=== PATIENT | female | born 1955 | race Caucasian/White ===

== ENCOUNTER 2019-07-14 08:18 | Day surgery (SDC) | payer MEDICARE, MEDICAID ==
--- NOTE | 2019-07-14 07:49 | HP ---
CC: Fredi Corbett MD * DATE OF PLANNED ADMISSION AND SURGERY: 07/14/2019 HISTORY OF PRESENT ILLNESS: Ms. Tovar is a 64-year-old white female who is admitted with microscopic hematuria, suspicious bladder lesion for cystoscopy and excisional biopsies. The patient had been followed by Dr. Corbett, her primary care physician in the [facility], for persistent microscopic hematuria. The patient has been having some frequency and nocturia about every 2 to 3 hours with urinary incontinence at night. There is no history of gross hematuria, renal or flank pain, or other voiding symptoms. The patient had a noncontrast CT of the abdomen and pelvis which showed no abnormalities in the kidneys or in the ureters. No renal calculi, renal masses or hydronephrosis were noted. There were small bilateral adrenal nodules; however, they were felt to be benign by the radiologist. The patient had two cystoscopies in my office as a work-up for the microhematuria. On both of them, there was a 1 cm flat lesion in the right anterior bladder wall that was suspicious for either flat transitional cell carcinoma or carcinoma in situ. Patient was scheduled twice before today to undergo cystoscopy and biopsies in the operating room; however, in both instances, the patient failed to show up for her procedures and her surgery was rescheduled. Now, she is going to admitted today for that procedure. PAST MEDICAL HISTORY AND SYSTEM REVIEW: She is diabetic, maintained on metformin 1000 mg daily and on Levemir injections. She has history of COPD and sleep apnea. She is on inhalers. She had a stroke many years ago and has been maintained on one regular aspirin per day and Plavix 75 mg daily. She has osteoporosis, on alendronate 70 mg once weekly. She has a history of migraines, on Tegretol 200 mg p.o. daily. She has environmental allergies, on Zyrtec. Patient is legally blind. ALLERGIES: Patient is allergic or intolerant to LAMICTAL, LISINOPRIL and LOSARTAN. MENTAL HEALTH HISTORY: She has bipolar disorder, anxiety and depression, and she is on amitriptyline and Xanax. FAMILY HISTORY: Positive for diabetes mellitus. SOCIAL HISTORY: The patient was a smoker of half a pack per day for about 10 years, stopped about 25 years ago, still smokes 2 cigarettes per day. She denies alcohol intake and recreational drug use. PHYSICAL EXAMINATION GENERAL: She is a pleasant white female who looks older than her age. She is blind. VITAL SIGNS: Blood pressure 120/70, pulse 80. HEART: Regular and rhythmic, Grade II pansystolic murmur. LUNGS: Clear, no wheezing. ABDOMEN: Soft, no masses, no tenderness, and no CVA tenderness. PELVIC EXAM: Done at the time of her cystoscopy in the office showed no pelvic masses. IMPRESSION: Microscopic hematuria with normal non-contrast CT of the abdomen and pelvis with a 1 cm flat lesion noted in the right anterior bladder wall on cystoscopy. PLAN: Cystoscopy and excisional biopsy and fulguration. I discussed the procedure with her caregivers, and with her daughter in the past. Additional treatment might be needed depending upon the pathology. [id number] #: [id number] MTDD
[~2019-07-14 08:18] MED LIST: Buffered Lidocaine 1% SYRIN* 1 ML/SYRINGE INTRADERM ONE; Lactated Ringers 1000 ML Bag* 1,000 ML IV SCH
[2019-07-14] MEDS ORDERED: Buffered Lidocaine 1% SYRIN* 1 ML/SYRINGE INTRADERM ONE (08:42)
[2019-07-14] MEDS ORDERED: cefTRIAXone(*) 1 GM ADVAN/BAG ONE (08:42)
[2019-07-14] MEDS ORDERED: Insulin REGULAR(*) 1 UNITS UNIT ONE (10:18)
[2019-07-14] MEDS ORDERED: Midazolam* 1 MG/ML 5 ML VIAL (5 MG) ONE (11:22)
[2019-07-14] MEDS ORDERED: fentaNYL* 50 MCG/ML 2 ML VIAL (100 MCG VIAL) ONE (11:38)
[2019-07-14] MEDS ORDERED: Propofol* 10 MG/ML 20 ML BTL ONE (11:59)
[2019-07-14] MEDS ORDERED: Ondansetron INJ* 2 MG/ML VIAL IV PRN (12:01)
[2019-07-14] MEDS ORDERED: Naloxone* 0.4 MG/ML 1 ML VIAL IV PRN (12:01)
[2019-07-14] MEDS ORDERED: oxyCODONE TAB* 5 MG TAB PO PRN (12:01)
[2019-07-14] MEDS ORDERED: fentaNYL* 50 MCG/ML 2 ML VIAL (100 MCG VIAL) IV PRN (12:01)
[2019-07-14 14:27] VITALS: BP 128/68
--- NOTE | 2019-07-15 02:04 | OP ---
CC: Dr. Fredi Corbett * DATE OF OPERATION: 07/14/19 - [facility] DATE OF : 57 SURGEON: Dom Locke MD ANESTHESIOLOGIST: Dr. Higinio Rapp. ANESTHESIA: IV sedation with MAC. PRE-OP DIAGNOSIS: Bladder lesion, right anterior bladder wall. POST-OP DIAGNOSIS: Pending pathology. OPERATIVE PROCEDURE: 1. Cystoscopy. 2. Excisional biopsy and fulguration of lesion of right anterior bladder wall. INDICATIONS FOR PROCEDURE: Ms. Tovar is a 64-year-old female with past history of smoking and who was noted to have persistent asymptomatic microscopic hematuria. Noncontrast CT of the abdomen and pelvis was negative. Office cystoscopy showed 1 cm flat lesion located in the right anterior bladder wall. The patient is admitted for excisional biopsy of that lesion. PATHOLOGY: At cystoscopy, the trigone and the ureteral orifices looked normal. There was a 1 cm flat lesion located in the right anterior bladder wall. The lesion had the appearance of flat low-grade transitional cell carcinoma. No other bladder lesions were seen. No calculi, diverticula, or areas of carcinoma in situ were noted. DESCRIPTION OF PROCEDURE: With the patient in the dorsal lithotomy position and after proper scrubbing and draping and under intravenous sedation with anesthesia monitoring, cystoscopy was performed. The bladder was carefully inspected and above findings were noted. Using the rigid biopsy forceps, the lesion was excised. Care was taken not to do too deep a biopsy because of the anterior location of the lesion and the concern about bladder perforation. The site of the biopsy as well as the surrounding bladder mucosa was then thoroughly fulgurated with the Bugbee electrode, achieving a very good hemostasis. At the completion of the procedure, there were no residual lesions seen. There was very good hemostasis. The cystoscope was removed. The patient tolerated the procedure well and left the operating room in good condition. [id number] #: [id number] [facility]
== END 2019-07-14 13:30 | disposition home or self-care (01) ==
LOC: OR 08:18
PROVIDERS: ATTEND Urology
DX: N32.89 Other specified disorders of bladder (principal); R31.29 Other microscopic hematuria; J44.9 Chronic obstructive pulmonary disease, unspecified; G47.33 Obstructive sleep apnea (adult) (pediatric); M81.0 Age-related osteoporosis without current pathological fracture; E11.9 Type 2 diabetes mellitus without complications; Z79.84 Long term (current) use of oral hypoglycemic drugs; F17.210 Nicotine dependence, cigarettes, uncomplicated; H54.8 Legal blindness, as defined in USA; F41.8 Other specified anxiety disorders; F31.9 Bipolar disorder, unspecified
CPT/HCPCS: 88305; 93005; J0696; J2250; J2704; J3010